=== PATIENT | female | born 1995 | race Caucasian/White ===

== ENCOUNTER 2017-12-13 04:11 | Emergency (ER) | payer SELFPAY ==
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
[2017-12-13] MEDS ORDERED: IPRATROPIUM/ALBUTEROL 3 ML VIAL NEB ONE ×2 (04:59→05:04)
[2017-12-13] MEDS ORDERED: methylPREDNISolone SODIUM SUC 125 MG/2 ML VIAL IV ONE (05:04)
[2017-12-13] MEDS ORDERED: MULTIPLE VITAMIN INJ 10 ML, THIAMINE HCL INJ 100 MG in SODIUM CHLORIDE 0.9% 1000ML 1,00... IVS ONE (05:10)
[2017-12-13] MEDS ORDERED: ONDANSETRON INJ 4 MG/2 ML VIAL IV ONE (05:10)
[2017-12-13] MEDS ORDERED: SODIUM CHLORIDE 0.9% 1000ML 1,000 ML ONE (05:12)
[2017-12-13] MEDS ORDERED: ONDANSETRON INJ 4 MG/2 ML VIAL ONE (05:13)
[2017-12-13] MEDS ORDERED: THIAMINE HCL INJ 100 MG/ML VIAL ONE (05:13)
[2017-12-13] MEDS ORDERED: MULTIPLE VITAMIN 10 ML VIAL ONE (05:15)
--- NOTE | 2017-12-13 06:36 | RAD ---
EXAM: AP CHEST RADIOGRAPH CLINICAL INDICATION: Trauma. COMPARISON: No comparisons are currently available. FINDINGS: Cardiac size and pulmonary vasculature are normal. Lungs are clear. No pleural effusions or pneumothorax. No hilar or mediastinal lymphadenopathy. No mediastinal widening. No extraluminal bowel gas under the hemidiaphragms. Bones are intact on this single view. IMPRESSION: Normal portable AP chest radiograph. Electronically signed by: Jose Fraire MD 12/13/2017 6:34 AM CDT
[2017-12-13] MEDS ORDERED: POTASSIUM CHLORIDE ELIXIR 20 MEQ/15 ML UD PO ONE (07:33)
[2017-12-13] MEDS ORDERED: SODIUM CHLORIDE 0.9% 1000ML 1,000 ML IVS ONE (08:14)
[2017-12-13 10:32] VITALS: BP 109/57; TEMP 97.2; O2SAT 99
== END 2017-12-13 10:32 | disposition home or self-care (01) ==
LOC: ER 04:11
DX: F10.129 Alcohol abuse with intoxication, unspecified (principal); Y90.6 Blood alcohol level of 120-199 mg/100 ml; E87.6 Hypokalemia
CPT/HCPCS: 36415; 71045; 80053; 80320; 84703; 85025; 94640; J2405; J2930; J3411; J7030; J7620